=== PATIENT | male | born 1970 | race Caucasian/White ===

== ENCOUNTER 2020-05-10 06:40 | Day surgery (SDC) | payer OTHER ==
[2020-05-09 09:27] LABS: BASOPHILS 0.7 % (0-2); EOSINOPHILS 1.6 % (0-7); HEMATOCRIT 46.6 % (42.0-54.0); HEMOGLOBIN 15.2 g/dL (13.5-17.5); IMMATURE GRANULOCYTES 0.3 % (0-5); LYMPHOCYTES 34.1 % (15-50); MCH 28.4 pg (26.0-34.0); MCHC 32.6 g/dL (31.0-37.0); MCV 86.9 fL (80.0-100.0); MEAN PLATELET VOLUME 10.7 fL (7.4-10.4); MONOCYTES 8.1 % (2-11); NEUTROPHILS 55.2 % (40-80); PLATELET COUNT 191 10x3/uL (130-400); RBC 5.36 10x6/uL (4.20-6.10); RDW 12.7 % (11.5-14.5); WBC 9.2 10x3/uL (4.8-10.8)
[2020-05-09 09:30] LABS: ANION GAP 14.8 mmol/L (8-16); CALCIUM 10.4 mg/dL (8.5-10.1); CARBON DIOXIDE 30.5 mmol/L (21.0-32.0); CREATININE - SERUM 1.3 mg/dL (0.6-1.3); POTASSIUM - SERUM 4.3 mmol/L (3.5-5.1)
[~2020-05-10] VITALS: Ht 175.3 cm; Wt 108.0 kg
[~2020-05-10 06:40] MED LIST: ASCORBIC ACID500 MG; FARXIGA10 MG PO; FENOFIBRATE134 MG PO; GLIMEPIRIDE4 MG PO; GLUCOPHAGE1000 MG PO; LISINOPRIL-HCT1 EAC8; LISINOPRIL-HCT1 EAC8 PO; VITAMIN B-1100 M1 PO; VITAMIN D1000 UNI1 PO
[2020-05-10 07:32] VITALS: BP 119/79; Ht 175.3 cm; Wt 108.0 kg
--- NOTE | 2020-05-10 10:57 | NUR ---
1020 IV D/C'D WITH CANNULA INTACT, PRESSURE HELD AND DRSG PLACED. DISCHARGE INSTRUCTIONS GIVEN TO PT AND , THEY BOTH VERBALIZED AN UNDERSTANDING. DISCHARGED HOME IN STABLE CONDITION AND WITHOUT C/0
--- NOTE | 2020-05-10 15:56 | OP ---
PATIENT NAME: ELISE VU MEDICAL RECORD: [id number] :66 LOCATION:[facility] ADMISSION DATE: SURGEON: JOHN PEREZ DO DATE OF OPERATION: 05/10/2020 PROCEDURE PERFORMED: Right knee arthroscopy with lateral release, partial lateral meniscectomy and abrasion chondroplasty of patella. PREOPERATIVE DIAGNOSES: Right knee patellofemoral syndrome, lateral meniscal tear and grade III chondromalacia of the patella. POSTOPERATIVE DIAGNOSES: Right knee patellofemoral syndrome, lateral meniscal tear and grade III chondromalacia of the patella. INDICATIONS: Mr. Vu is a 49-year-old male who presented to my office with severe knee pain. He had grinding with walking and running. He does play softball and was tired dealing with it and we did try an injection as well as physical therapy to no avail. He had an MRI to ensure the TT-TG was not too severe and it was not within normal limits. I informed him that I can do a lateral release to get the patella pop over a little bit better and then cleaned it up on the inside. He was okay with that as were the risks including infection, bleeding, damage to nerves and vessels in the area, continued pain with the chondromalacia that he had, I could not make that better, blood clots and even and he signed the consent. SURGEON: John Perez DO DESCRIPTION OF PROCEDURE: The patient was taken to the operative suite, laid in supine position. Given general anesthetic, 2 grams Ancef and an LMA was placed. The right lower extremity was then prepped and draped in sterile fashion. A timeout was performed and everyone was in agreeance with the correct side, site, patient, and the procedure. I then established a lateral portal with an 11-blade scalpel and a trocar was then entered into the joint. I then inspected the suprapatellar pouch. No loose bodies seen in it. I did see the superior chondromalacia patella of the lateral facet. At that time, inspection of the lateral gutter and medial gutter, no loose body seen in that. I then established a medial portal with an 18-gauge spinal needle and 11-blade scalpel and a trocar was then brought in. I then used a probe and inspected the meniscus on the medial side. It was in good repair. There was no tear seen in it and there was no chondromalacia seen in the medial compartment. ACL was inspected as well and it was in good repair. I then [id number]'ed the knee and saw the lateral compartment. He had a small fraying and tears of the lateral meniscus of the medial portion. I used a shaver to clean that up as well as some grade II chondromalacia of the lateral tibial plateau, I cleaned that up as well with the shaver. I then switched portal sites from the lateral to medial for viewing. I then brought in a burner through the lateral portal and did a lateral release in the lateral retinaculum and noted the patella moved over quite a bit medially and then the shaver through that and did an abrasion chondroplasty of the patella, lateral facet. I then turned the suction on and the water off. I remove the excess fluid from the knee. Car Garza, certified ophthalmic medical technician then closed the portal sites with 4-0 Monocryl in inverted interrupted fashion, dressed with Steri-Strips, Adaptic, 4 x 4's, ABD, Webril and Joby wrap. He was then awakened and taken to recovery in stable condition. BLOOD LOSS: Minimal. OPERATIVE REPORT [id number] ELISE VU COMPLICATIONS: None. TRANSINT:[id number] Voice Confirmation ID: [id number] DOCUMENT ID: [id number] JOHN PEREZ DO at 1556 CC: [id number] DICTATION DATE: 05/10/20922 TRUCK RENTAL CLERK: 05/10/20 1540 [facility] 05/10/20 [facility] [address] [place] [address]
== END 2020-05-10 10:25 | disposition home or self-care (01) ==
LOC: D.OPS 06:40
PROVIDERS: Anesthesiology; ATTEND Orthopaedic Surgery
DX: M22.41 Chondromalacia patellae, right knee (principal); M25.561 Pain in right knee; M22.42 Chondromalacia patellae, left knee; M25.562 Pain in left knee